=== PATIENT | female | born 1960 | race Caucasian/White ===

== ENCOUNTER 2017-06-13 09:40 | Emergency (ER) | payer OTHER ==
[~2017-06-13] VITALS: Ht 162.6 cm; Wt 99.8 kg
[2017-06-13] MEDS ORDERED: NAPROSYN500 MG PO (11:43)
[2017-06-13] MEDS ORDERED: ROBAXIN500 MG PO (11:43)
== END 2017-06-13 12:40 | disposition home or self-care (01) ==
LOC: ER 09:40
DX: S13.4XXA Sprain of ligaments of cervical spine, initial encounter (principal); K11.8 Other diseases of salivary glands; V43.52XA Car driver injured in collision with other type car in traffic accident, initial encounter; Y93.I9 Activity, other involving external motion; Y92.89 Other specified places as the place of occurrence of the external cause; Y99.8 Other external cause status